=== PATIENT | male | born 1965 | race Caucasian/White ===

== ENCOUNTER 2017-01-07 19:14 | Emergency (ER) | payer BC, OTHER ==
[~2017-01-07] VITALS: Ht 175.3 cm; Wt 90.6 kg
[~2017-01-07 19:14] MED LIST: ACYC1CAP8 PO; ATEN-173 PO
[2017-01-07 19:20] VITALS: Ht 175.3 cm; Wt 90.6 kg
[2017-01-07] MEDS ORDERED: ASPI81TA28 PO (19:40)
--- NOTE | 2017-01-07 20:30 | DIAGNOSTIC IMAGING REPORT ---
RIGHT FOREARM 2 VIEWS ROUTINE CLINICAL HISTORY: Right forearm pain status post trauma COMPARISON: None. DISCUSSION: No fractures or dislocations are visualized. IMPRESSION: No fractures identified. Electronically signed by: Kaz Park M.D. 01/07/2017 8:29 PM Dictated Date/Time: 01/07/2017 8:28 PM
--- NOTE | 2017-01-07 20:32 | DIAGNOSTIC IMAGING REPORT ---
RIGHT RIBS UNILATERAL WITH PA CHEST (6 views) CLINICAL HISTORY: Right rib pain status post trauma COMPARISON STUDY: No previous studies for comparison. FINDINGS: The erect chest reveals no pneumothorax. There is no focal pulmonary consolidation. There is a nondisplaced fracture the right ninth rib laterally. IMPRESSION: Nondisplaced right ninth rib fracture. No evidence of pneumothorax. Electronically signed by: Kaz Park M.D. 01/07/2017 8:31 PM Dictated Date/Time: 01/07/2017 8:29 PM
[2017-01-07] MEDS ORDERED: NAPR500T3 PO (20:47)
--- NOTE | 2017-01-07 20:51 | EMERGENCY ROOM VISIT NOTE ---
ED Visit Note First contact with patient: 19:25 CHIEF COMPLAINT: Right forearm and right Rib pain s/p fall. HISTORY OF PRESENT ILLNESS: This 52-year-old male patient presents to the emergency department ambulatory, complaining of pain in the right forearm and right ribs after following. The patient states he was leaving home, and slipped on the sidewalk. He states the injury occurred approximately one hour ago. The patient states he landed on his right side, with his right forearm pinched under his right ribs. The patient states he is experiencing significant pain in the right forearm, describing the pain in the mid shaft, radiating towards the wrist. The patient states he is also experiencing point tenderness in the right rib, on the lateral/posterior aspect. The patient does report a history of right wrist fracture approximately 40 years ago. His wrist pain worsens with supination and pronation, but he does have full range of motion. There is no increased pain in his right ribs with deep breathing or coughing. Denies shortness of breath or coughing up blood. The patient rates the pain in the rib as well as pain in the right forearm as sharp and 2/10. The patient has taken nothing for relief of the pain. No previous fractures to the ribs. The patient denies any other injury. The patient denies any abdominal pain , nausea, or vomiting. REVIEW OF SYSTEMS: A 6 system review of systems was completed with positives and pertinent negatives listed in the HPI. ALLERGIES: Penicillins MEDICATIONS: Acyclovir, atenolol PMH: Asthma, herpes, history of CVA SOCIAL HISTORY: The patient lives locally with family. Denies drug, tobacco use. The patient reports he does drink 3-4 glasses of wine per day. PHYSICAL EXAM: VITALS: Vitals are noted on the nurse's note and reviewed by myself. Vital signs stable. GENERAL: This is a 52-year-old white male, in no acute distress, nondiaphoretic , well-developed well-nourished. LUNGS: Clear to auscultation and breath sounds equal, no wheezes, rales, or rhonchi. HEART: Heart sounds are regular without murmurs, ectopy, gallop, or rub. CHEST: The right lateral chest wall is tender to palpation over the ninth and 10th ribs but there is no fracture crepitus and no ecchymosis. There is no tachypnea or dyspnea. ABDOMEN: Positive bowel sounds x 4. Normal tympanic percussion. Soft, nontender, without masses or organomegaly. No guarding or rebound tenderness. NEURO: Patient was alert and oriented to person place and time. MUSCULOSKELETAL: There is no tenderness of the right forearm or wrist on palpation. The patient does have full active and passive range of motion. He reports tenderness in the mid-shaft of the forearm and wrist on pronation and supination. [employer]ician strength 5/ 5 bilaterally. Capillary refill <2 seconds. Radial pulse 3+. RADIOLOGY: X-Ray Right Forearm: RIGHT FOREARM 2 VIEWS ROUTINE CLINICAL HISTORY: Right forearm pain status post trauma COMPARISON: None. DISCUSSION: No fractures or dislocations are visualized. IMPRESSION: No fractures identified. X-Ray Right Ribs with PA Chest: RIGHT RIBS UNILATERAL WITH PA CHEST (6 views) CLINICAL HISTORY: Right rib pain status post trauma COMPARISON STUDY: No previous studies for comparison. FINDINGS: The erect chest reveals no pneumothorax. There is no focal pulmonary consolidation. There is a nondisplaced fracture the right ninth rib laterally. IMPRESSION: Nondisplaced right ninth rib fracture. No evidence of pneumothorax. EMERGENCY DEPARTMENT COURSE: I examined the patient. X-rays of the chest with right rib detail was reviewed by myself and radiologist and show nondisplaced right 9th rib fracture. X-Ray of the right forearm was negative for acute fracture or abnormality. I discussed the findings with the patient at bedside. I discussed with him the importance of taking deep breaths and preventing atelectasis. The patient states he understands. I encouraged him to wear the wrist brace he already has at home, and to follow-up with orthopedics in 2 weeks if he does not note improvement in his wrist/forearm pain. Discussion with patient regarding pain medication and he is in agreement that treatment with antiinflammatories makes sense. The patient was provided with an incentive spirometer and instructed on it's proper use. The patient was discharged home in good condition. DIFFERENTIAL DIAGNOSIS: Rib fracture, rib contusion, costochondritis, forearm fracture, wrist fracture, forearm contusion, wrist contusion, sprain, strain, and others DIAGNOSIS: Right ninth rib fracture, right forearm contusion TREATMENT and DISCHARGE INSTRUCTIONS: You have been treated in the Emergency Department for Rib fracture and forearm contusion. You've been prescribed naproxen 500 mg to be taken twice daily. This to help with inflammation and pain. You should use this medication in place of ibuprofen. Do not take any other forms of naproxen, Aleve, ibuprofen, Motrin, or Advil while taking this medication. For pain control, you can use the following [id number] medicines (if >12 yo): Ibuprofen(Motrin, Advil) may be used for fever or pain. Use 600mg every six hours as needed. Take with food. Avoid using more than 2400mg in a 24 hour period. Do not use 2400mg per day for more than three consecutive days without physician direction. Prolonged inappropriate use can lead to stomach upset or ulcers. Do not take this medication while taking naproxen. (AND/OR) Acetaminophen(Tylenol) may be used for fever or pain. Use 1000mg every six hours as needed. Avoid using more than 3000mg in a 24 hour period. If this is an acute injury, ice can be applied to the area of pain for the first 3 days to help decrease pain and inflammation. After the first 3 days, a heating pad can be used over the area for continued soothing relief. To minimize your discomfort, you can hug a pillow while coughing or sneezing. Additionally, you should continue to force yourself to take nice, deep breaths. Full expansion of the lungs is necessary to prevent the accumulation of fluid in the lung tissue and development of pneumonia. You may use the incentive spirometer your provided with in the emergency department. You should schedule a follow-up appointment in 2-3 days with your Primary Care Provider for further evaluation and treatment of your back pain. Follow-up with orthopedics if you do not experience improvement in your wrist pain in 2 weeks. As discussed, sometimes wrist fractures do not show up on initial x-rays. You should wear the wrist brace you have already for comfort. Return to the Emergency Department if your current symptoms worsen despite treatment course outlined above, or if you develop any of the following symptoms : intractable pain despite aforementioned treatment course, development of a wet cough, bloody cough, fever, chills, or increased shortness of breath. Problem List Medical Problems: (1) CVA (cerebral vascular accident) Status: Chronic (2) HSV (herpes simplex virus) infection Status: Chronic (3) HTN (hypertension) Status: Chronic (4) Umbilical hernia Status: Resolved Current/Historical Medications Scheduled Acyclovir (Zovirax), 400 MG PO BID Aspirin (Aspirin Ec), 81 MG PO DAILY Atenolol (Tenormin), 25 MG PO DAILY Naproxen (Naproxen), 1 TAB PO BID Allergies Coded Allergies: Penicillins (Verified Allergy, Unknown, GI SYMPTOMS, 01/07/17) Vital Signs Date Time Temp Pulse Resp B/P (MAP) Pulse Ox O2 Delivery O2 Flow Rate FiO2 01/07/17 19:20 36.7 77 18 156/103 94 Room Air Departure Information Impression Primary Impression: Forearm contusion Additional Impression: Rib fracture Dispostion Home / Self-Care Condition GOOD Prescriptions Naproxen (NAPROXEN) 500 Mg Tab 1 TAB PO BID for 30 Days, #60 TAB Prov: Sydney Monique, DASIA 01/07/17 Referrals Vel Willett M.D. (PCP) [facility] Patient Instructions ED Contusion Upper Ext, ED Fx Rib, Incentive Spirometer Tx, [facility] Additional Instructions You have been treated in the Emergency Department for Rib fracture and forearm contusion. You've been prescribed naproxen 500 mg to be taken twice daily. This to help with inflammation and pain. You should use this medication in place of ibuprofen. Do not take any other forms of naproxen, Aleve, ibuprofen, Motrin, or Advil while taking this medication. For pain control, you can use the following [id number]-[id number] medicines (if >12 yo): Ibuprofen(Motrin, Advil) may be used for fever or pain. Use 600mg every six hours as needed. Take with food. Avoid using more than 2400mg in a 24 hour period. Do not use 2400mg per day for more than three consecutive days without physician direction. Prolonged inappropriate use can lead to stomach upset or ulcers. Do not take this medication while taking naproxen. (AND/OR) Acetaminophen(Tylenol) may be used for fever or pain. Use 1000mg every six hours as needed. Avoid using more than 3000mg in a 24 hour period. If this is an acute injury, ice can be applied to the area of pain for the first 3 days to help decrease pain and inflammation. After the first 3 days, a heating pad can be used over the area for continued soothing relief. To minimize your discomfort, you can hug a pillow while coughing or sneezing. Additionally, you should continue to force yourself to take nice, deep breaths. Full expansion of the lungs is necessary to prevent the accumulation of fluid in the lung tissue and development of pneumonia. You may use the incentive spirometer your provided with in the emergency department. You should schedule a follow-up appointment in 2-3 days with your Primary Care Provider for further evaluation and treatment of your back pain. Follow-up with orthopedics if you do not experience improvement in your wrist pain in 2 weeks. As discussed, sometimes wrist fractures do not show up on initial x-rays. You should wear the wrist brace you have already for comfort. Return to the Emergency Department if your current symptoms worsen despite treatment course outlined above, or if you develop any of the following symptoms : intractable pain despite aforementioned treatment course, development of a wet cough, bloody cough, fever, chills, or increased shortness of breath. Problem Qualifiers Primary Impression: Forearm contusion Encounter type: initial encounter Laterality: right Qualified Codes: S50.11XA - Contusion of right forearm, initial encounter Additional Impression: Rib fracture Encounter type: initial encounter Rib fracture type: single rib Fracture type: closed Laterality: right Qualified Codes: S22.31XA - Fracture of one rib, right side, initial encounter for closed fracture
[2017-01-07 20:56] VITALS: BP 156/103; PULSE 77; TEMP 36.7; O2SAT 94
== END 2017-01-07 20:57 | disposition home or self-care (01) ==
LOC: C.EDB 19:15 → C.EDD 20:57
DX: S50.11XA Contusion of right forearm, initial encounter (principal); S22.31XA Fracture of one rib, right side, initial encounter for closed fracture; W01.198A Fall on same level from slipping, tripping and stumbling with subsequent striking against other object, initial encounter; J45.909 Unspecified asthma, uncomplicated; I10 Essential (primary) hypertension; Z86.73 Personal history of transient ischemic attack (TIA), and cerebral infarction without residual deficits; Z79.82 Long term (current) use of aspirin